=== PATIENT | male | born 1955 | race Caucasian/White ===

== ENCOUNTER 2021-06-21 12:37 | Outpatient (CLI) | payer MEDICARE, OTHER | END 2021-06-21 12:38 | disposition home or self-care (01) | LOC: SCSMRI 12:37 | PROVIDERS: ATTEND Family Medicine | DX: M47.26 Other spondylosis with radiculopathy, lumbar region (principal); M51.16 Intervertebral disc disorders with radiculopathy, lumbar region; M48.061 Spinal stenosis, lumbar region without neurogenic claudication; M43.16 Spondylolisthesis, lumbar region | CPT/HCPCS: 72158; 82565 ==

== ENCOUNTER 2021-07-17 16:02 | Outpatient (CLI) | payer MEDICARE, OTHER | END 2021-07-17 16:03 | disposition home or self-care (01) | LOC: SCSRAD 16:02 | PROVIDERS: ATTEND Nurse Practitioner Acute Care | DX: M43.16 Spondylolisthesis, lumbar region (principal); M79.18 Myalgia, other site; M47.816 Spondylosis without myelopathy or radiculopathy, lumbar region; M47.817 Spondylosis without myelopathy or radiculopathy, lumbosacral region | CPT/HCPCS: 72120 ==